=== PATIENT | male | born 1990 ===

== ENCOUNTER 2019-07-03 | Emergency (ER) | payer OTHER ==
[2019-07-03] MEDS ORDERED: TETANUS & DIPHTHERIA TOX,ADULT 0.5 ML VIAL ONE (00:33)
[2019-07-03] MEDS ORDERED: DERMABOND SKIN ADHESIVE TOP ONE (00:33)
[2019-07-03] MEDS ORDERED: LIDOCAINE 1% 20 ML MDV ONE (00:33)
--- NOTE | 2019-07-03 01:08 | ER ---
Nurse's Notes [facility] Name: Bruce Mccloud Jr Age: 29 yrs Sex: Male : 1990 Arrival Date: 07/03/2019 Time: 00:06 Bed 19 Private MD: Diagnosis: Fall due to bumping against object;Laceration without foreign body of other part of head-right brow, upper lip;Laceration of lip and oral cavity without foreign body Presentation: 07/03 00:07 Presenting complaint: Patient states: HE was standing in his cell when he lost consciousness and fell hitting his head. Pt suffered small laceration cut on upper lip and eyebrow. Care prior to arrival: None. Mechanism of Injury: Fall standing. 00:07 Acuity: YUNIOR 4 00:07 Method Of Arrival: Ambulatory 00:18 Transition of care: patient was not received from another setting of care. Onset of symptoms was July 03, 2019. Risk Assessment: Do you want to hurt yourself or someone else? Patient reports no desire to harm self or others. Initial Sepsis Screen: Does the patient meet any 2 criteria? No. Patient's initial sepsis screen is negative. Does the patient have a suspected source of infection? No. Patient's initial sepsis screen is negative. 00:21 Trauma event details: Injury occurred in the [facility], Injury occurred: in an institution. Injury occurred: July 03, 2019. Trauma Activation: Physician: ED Physician; Name: ; Notified At: 00:22; Arrived At: 00:22 Physician: General Surgeon; Name: ; Notified At: 00:22; Arrived At: Physician: Radiology; Name: ; Notified At: 00:22; Arrived At: 00:22 Physician: Respiratory; Name: ; Notified At: 00:22; Arrived At: Physician: Lab; Name: ; Notified At: 00:22; Arrived At: Historical: - Allergies: 00:20 Ibuprofen; - Home Meds: 00:20 carbamazepine 200 mg Oral tab [Active]; citalopram 40 mg tab [Active]; - PSHx: 00:20 None; wh - Immunization history: Last tetanus immunization: unknown. - Coronavirus screen:: The patient has NOT traveled to [place] in the past 14 days. - Social history:: Smoking status: Patient/guardian denies using. - Family history:: not pertinent. - Ebola Screening: : Patient negative for fever greater than or equal to 101.5 degrees Fahrenheit, and additional compatible Ebola Virus Disease symptoms Patient denies exposure to infectious person. Screenin:11 Abuse screen: Denies threats or abuse. Denies injuries from another. Nutritional wh screening: No deficits noted. Tuberculosis screening: No symptoms or risk factors identified. Fall Risk Fall in past 12 months (25 points). Primary Survey: 00:30 NO uncontrolled hemorrhage observed. A: The patient is alert. Airway: patent, No aa1 supplemental oxygen in use on arrival. Oral cavity: clear. Breathing/Chest: Respiratory pattern: regular, Respiratory effort: spontaneous, unlabored, Breath sounds: clear, bilaterally. Chest inspection: symmetrical rise and fall of the chest. Circulation: Heart tones present. Pulses: palpable right radial artery and left radial artery. Skin color: pink, Skin temperature: warm. Disability Alert. Exposure/Environment: There is no evidence of uncontrolled external bleeding. Obvious injury(ies) are noted at this time: laceration noted to right side of upper lip and right brow. 00:39 Reassessment Breathing/Chest Respiratory pattern Regular Respiratory effort Spontaneous wh Unlabored Breath sounds Clear. Secondary Survey: 00:30 HEENT: Face Other laceration to R side of upper lip and R brow. Gastrointestinal: aa1 Abdomen is soft. : No signs and/or symptoms were reported regarding the genitourinary system. Musculoskeletal: Circulation, motion, and sensation intact. Capillary refill < 3 seconds. Injury Description: Laceration sustained to outer aspect of right eyebrow and upper vermilion border is clean, 0.5 to 2.5 cm long, not bleeding. Assessment: 00:38 General: Appears in no apparent distress. Behavior is calm, cooperative, appropriate wh for age. Pain: Complains of pain in outer aspect of right eyebrow and upper lip. Neuro: Level of Consciousness is awake, alert, obeys commands, Oriented to person, place, time, situation, Appropriate for age. Cardiovascular: Heart tones S1 S2 Capillary refill < 3 seconds. Respiratory: Airway is patent Respiratory effort is even, unlabored, Respiratory pattern is regular, symmetrical, Breath sounds are clear bilaterally. GI: Abdomen is flat, non-distended. : No signs and/or symptoms were reported regarding the genitourinary system. EENT: No signs and/or symptoms were reported regarding the EENT system. Derm: Skin is intact, is healthy with good turgor, Skin is pink, warm \T\ dry. normal. Musculoskeletal: Circulation, motion, and sensation intact. 01:30 Reassessment: Patient appears in no apparent distress at this time. No changes from previously documented assessment. Patient and/or family updated on plan of care and expected duration. Pain level reassessed. Patient is alert, oriented x 3, equal unlabored respirations, skin warm/dry/pink. Pt with DC order awaiting CT imaging. 02:33 Reassessment: Patient appears in no apparent distress at this time. No changes from previously documented assessment. Patient and/or family updated on plan of care and expected duration. Pain level reassessed. Patient is alert, oriented x 3, equal unlabored respirations, skin warm/dry/pink. CT imaging result negative, PER MD ok to DC. Vital Signs: 00:12 BP 123 / 80; Pulse 74; Resp 18; Temp 98; Pulse Ox 99% ; Weight 63.5 kg; Height 5 ft. 2 in. (157.48 cm); 01:00 BP 108 / 69; Pulse 69; Resp 18; Pulse Ox 99% on R/A; 02:00 BP 101 / 64; Pulse 66; Resp 18; Pulse Ox 99% on R/A; 00:12 Body Mass Index 25.61 (63.50 kg, 157.48 cm) [place] Coma Score: 00:12 Eye Response: spontaneous(4). Verbal Response: oriented(5). Motor Response: obeys commands(6). Total: 15. Trauma Score (Adult): 00:12 Eye Response: spontaneous(1); Verbal Response: oriented(1); Motor Response: obeys commands(2); Systolic BP: > 89 mm Hg(4); Respiratory Rate: 10 to 29 per min(4); [place] Score: 15; Trauma Score: 12 ED Course: 00:06 Patient arrived in ED. 00:09 Triage completed. 00:19 Joaquín Turner MD is Attending Physician. [facility] 00:20 Arm band placed on right wrist. 00:21 Patient has correct armband on for positive identification. Bed in low position. Call light in reach. Side rails up X 1. Pulse ox on. NIBP on. 00:21 Patient maintains SpO2 saturation greater than 95% on room air. 00:22 Beth Stearns is Primary Nurse. 00:22 Thermoregulation: warm blanket given to patient. 00:52 Assist provider with laceration repair on outer aspect of right eyebrow and upper lip wh that was 2.5 cm. or less using sutures. Set up tray. Performed by Joaquín Turner MD Dressed with band aid, Patient tolerated well. 02:35 Patient did not have IV access during this emergency room visit. 07:33 CT Head C Spine In Process Unspecified. EDMS Administered Medications: 00:33 Drug: Tetanus-Diphtheria Toxoid Adult 0.5 ml {Pail Bailer: [employer]. Exp: 04/08/2021. Lot #: [id number]. } Route: IM; Site: right deltoid; 00:51 Follow up: Response: No adverse reaction 00:51 Drug: Lidocaine-Epinephrine -1%: (1:100,000) 10 ml {Note: Administered by Johnny REINA.} Volume: 20 ml; Route: Infiltration; 01:41 Drug: Ancef 1 grams Route: IM; Site: right gluteus; 02:32 Follow up: Response: No adverse reaction 01:41 Drug: Neosporin Ointment 1 application Route: Topical; Site: affected area; 02:32 Follow up: Response: No adverse reaction Intake: 02:35 PO: 120ml (Juice); Total: 120ml. Outcome: 01:06 Discharge ordered by . [facility] 02:34 Discharged to Law Enforcement 02:34 Condition: stable 02:34 Discharge instructions given to patient, police, Instructed on discharge instructions, follow up and referral plans. medication usage, wound care, Demonstrated understanding of instructions, follow-up care, medications, wound care, Prescriptions given X 1. 02:35 Patient's length of stay was not longer than 2 hours. 02:35 Patient left the ED. Signatures: Dispatcher [employer] EDMS Noelle Hernandez RN RN aa1 Joaquín Turner MD MD cha [place], Winsy Corrections: (The following items were deleted from the chart) 00: 00:12 NO uncontrolled hemorrhage observed [facility] 00:12 A: The patient is alert. Airway: patent, [facility] 00:12 Breathing/Chest: Respiratory pattern: regular, [facility] 00:12 Circulation: Cardiac rhythm: sinus rhythm [facility] 00:12 Disability Alert [facility] 00:12 Exposure/Environment: No obvious injuries are noted at this time. [facility]
--- NOTE | 2019-07-03 01:09 | EDPHYS ---
Physician Documentation [facility] Name: Bruce Mccloud Jr Age: 29 yrs Sex: Male : 1990 Arrival Date: 07/03/2019 Time: 00:06 Bed 19 Private MD: ED Physician Joaquín Turner HPI: 07/03 01:00 This 29 yrs old Male presents to ER via Ambulatory with complaints of Fall emeterio Injury. 01:00 Details of fall: The patient fell from an upright position, while standing, while emeterio walking. Onset: The symptoms/episode began/occurred just prior to arrival. Associated injuries: The patient sustained injury to the head, laceration, pain, swelling. Severity of symptoms: At their worst the symptoms were mild, in the emergency department the symptoms are unchanged. The patient has experienced similar episodes in the past, a few times. Historical: - Allergies: 00:20 Ibuprofen; wh - Home Meds: 00:20 carbamazepine 200 mg Oral tab [Active]; citalopram 40 mg tab [Active]; wh - PSHx: 00:20 None; wh - Immunization history: Last tetanus immunization: unknown. - Coronavirus screen:: The patient has NOT traveled to [place] in the past 14 days. - Social history:: Smoking status: Patient/guardian denies using. - Family history:: not pertinent. - Ebola Screening: : Patient negative for fever greater than or equal to 101.5 degrees Fahrenheit, and additional compatible Ebola Virus Disease symptoms Patient denies exposure to infectious person. ROS: 01:00 Constitutional: Negative for fever, chills, and weight loss, Eyes: Negative for injury, emeterio pain, redness, and discharge, ENT: Negative for injury, pain, and discharge, Neck: Negative for injury, pain, and swelling, Cardiovascular: Negative for chest pain, palpitations, and edema, Respiratory: Negative for shortness of breath, cough, wheezing, and pleuritic chest pain, Abdomen/GI: Negative for abdominal pain, nausea, vomiting, diarrhea, and constipation, Back: Negative for injury and pain, : Negative for injury, bleeding, discharge, and swelling, MS/Extremity: Negative for injury and deformity, Neuro: Negative for headache, weakness, numbness, tingling, and seizure, Psych: Negative for depression, anxiety, suicide ideation, homicidal ideation, and hallucinations, Allergy/Immunology: Negative for hives, rash, and allergies, Endocrine: Negative for neck swelling, polydipsia, polyuria, polyphagia, and marked weight changes. 01:00 Skin: Positive for erythema, hematoma, laceration(s), of the right eye and mouth. Exam: 01:00 Constitutional: This is a well developed, well nourished patient who is awake, alert, emeterio and in no acute distress. Eyes: Pupils equal round and reactive to light, extra-ocular motions intact. Lids and lashes normal. Conjunctiva and sclera are non-icteric and not injected. Cornea within normal limits. Periorbital areas with no swelling, redness, or edema. Neck: Trachea midline, no thyromegaly or masses palpated, and no cervical lymphadenopathy. Supple, full range of motion without nuchal rigidity, or vertebral point tenderness. No Meningismus. Chest/axilla: Normal chest wall appearance and motion. Nontender with no deformity. No lesions are appreciated. Cardiovascular: Regular rate and rhythm with a normal S1 and S2. No gallops, murmurs, or rubs. Normal PMI, no JVD. No pulse deficits. Respiratory: Lungs have equal breath sounds bilaterally, clear to auscultation and percussion. No rales, rhonchi or wheezes noted. No increased work of breathing, no retractions or nasal flaring. Abdomen/GI: Soft, non-tender, with normal bowel sounds. No distension or tympany. No guarding or rebound. No evidence of tenderness throughout. Back: No spinal tenderness. No costovertebral tenderness. Full range of motion. Male : Normal genitalia with no discharge or lesions. Skin: Warm, dry with normal turgor. Normal color with no rashes, no lesions, and no evidence of cellulitis. MS/ Extremity: Pulses equal, no cyanosis. Neurovascular intact. Full, normal range of motion. Neuro: Awake and alert, GCS 15, oriented to person, place, time, and situation. Cranial nerves II-XII grossly intact. Motor strength 5/5 in all extremities. Sensory grossly intact. Cerebellar exam normal. Normal gait. Psych: Awake, alert, with orientation to person, place and time. Behavior, mood, and affect are within normal limits. 01:00 Head/face: Noted is a laceration(s), that is deep, that is linear, 1 cm(s), of the right eye, of the mouth. Vital Signs: 00:12 BP 123 / 80; Pulse 74; Resp 18; Temp 98; Pulse Ox 99% ; Weight 63.5 kg; Height 5 ft. 2 wh in. (157.48 cm); 01:00 BP 108 / 69; Pulse 69; Resp 18; Pulse Ox 99% on R/A; wh 02:00 BP 101 / 64; Pulse 66; Resp 18; Pulse Ox 99% on R/A; wh 00:12 Body Mass Index 25.61 (63.50 kg, 157.48 cm) [place] Coma Score: 00:12 Eye Response: spontaneous(4). Verbal Response: oriented(5). Motor Response: obeys commands(6). Total: 15. Trauma Score (Adult): 00:12 Eye Response: spontaneous(1); Verbal Response: oriented(1); Motor Response: obeys commands(2); Systolic BP: > 89 mm Hg(4); Respiratory Rate: 10 to 29 per min(4); [place] Score: 15; Trauma Score: 12 Laceration: 01:00 Wound Repair of 1cm ( 0.4in ) subcutaneous laceration to philtrum. Linear shaped.. emeterio Distal neuro/vascular/tendon intact. Anesthesia: Local anesthetic administered with 5 mls of 1% lidocaine. Wound prep: Simple cleansing with betadine. Skin closed with 2 5-0 Prolene using interrupted sutures and sterile technique. Dressed with Neosporin. Patient tolerated well. MDM: 00:19 Patient medically screened. [facility] 07/03 00:21 Order name: CT Head C Spine [facility] 07/03 00:21 Order name: Prolene, Sutures; Complete Time: 00:32 [facility] 07/03 00:21 Order name: Dressing - Wound; Complete Time: 00:32 [facility] 07/03 00:21 Order name: Gloves, Sterile; Complete Time: 00: [facility] 07/03 00:21 Order name: Setup Suture Tray; Complete Time: 00:32 [facility] Administered Medications: 00:33 Drug: Tetanus-Diphtheria Toxoid Adult 0.5 ml {Lacquer Coater: [employer]. Exp: 04/08/2021. Lot #: [id number]. } Route: IM; Site: right deltoid; 00:51 Follow up: Response: No adverse reaction 00:51 Drug: Lidocaine-Epinephrine -1%: (1:100,000) 10 ml {Note: Administered by Johnny REINA.} Volume: 20 ml; Route: Infiltration; 01:41 Drug: Ancef 1 grams Route: IM; Site: right gluteus; 02:32 Follow up: Response: No adverse reaction 01:41 Drug: Neosporin Ointment 1 application Route: Topical; Site: affected area; 02:32 Follow up: Response: No adverse reaction Disposition: 07/03/19 01:06 Discharged to Home. Impression: Fall due to bumping against object, Laceration without foreign body of other part of head - right brow, upper lip, Laceration of lip and oral cavity without foreign body. - Condition is Stable. - Discharge Instructions: Head Injury, Adult, Mouth Laceration, Facial Laceration, Mouth Laceration, [id number], Facial Laceration, [id number], Head Injury, Adult, [id number]. - Prescriptions for Keflex 500 mg Oral Capsule - take 1 capsule by ORAL route every 6 hours for 10 days; 28 capsule. - Medication Reconciliation Form, Thank You Letter, Antibiotic Education, Prescription Opioid Use form. - Follow up: Private Physician; When: 5 - 6 days; Reason: Recheck today's complaints, Continuance of care, Re-evaluation by your physician. - Problem is new. - Symptoms have improved. Signatures: Dispatcher [employer] EDJoaquín Ivy MD MD cha [place], Winsy Corrections: (The following items were deleted from the chart) 01:10 01:06 07/03/2019 01:06 Discharged to Home. Impression: Fall due to bumping against [facility] object; Laceration without foreign body of other part of head - right brow, upper lip. Condition is Stable. Forms are Medication Reconciliation Form, Thank You Letter, Antibiotic Education, Prescription Opioid Use. Follow up: Private Physician; When: 5 - 6 days; Reason: Recheck today's complaints, Continuance of care, Re-evaluation by your physician. Problem is new. Symptoms have improved. emeterio 02:35 01:10 07/03/2019 01:06 Discharged to Home. Impression: Fall due to bumping against object; Laceration without foreign body of other part of head - right brow, upper lip; Laceration of lip and oral cavity without foreign body. Condition is Stable. Discharge Instructions: Head Injury, Adult, Facial Laceration, Facial Laceration, [id number], Head Injury, Adult, [id number]. Prescriptions for Keflex 500 mg Oral Capsule - take 1 capsule by ORAL route every 6 hours for 10 days; 28 capsule. and Forms are Medication Reconciliation Form, Thank You Letter, Antibiotic Education, Prescription Opioid Use. Follow up: Private Physician; When: 5 - 6 days; Reason: Recheck today's complaints, Continuance of care, Re-evaluation by your physician. Problem is new. Symptoms have improved. emeterio
[2019-07-03] MEDS ORDERED: WATER FOR INJ,STERILE 10 ML ONE (01:20)
[2019-07-03] MEDS ORDERED: CEFAZOLIN SODIUM 1 GM/VIAL ONE (01:20)
[2019-07-03] MEDS ORDERED: BACI/NEOMYCIN/POLY OINT 15GM TOP ONE (01:20)
[2019-07-03 02:48] VITALS: TEMP 98; O2SAT 99
[2019-07-03 02:50] VITALS: BP 101/64
--- NOTE | 2019-07-04 11:26 | RAD REPORT ---
EXAM DESCRIPTION: CT - Head C Spine Mpr Wo Con - 07/03/2019 4:29 am CLINICAL HISTORY: 29 years Male Pain; Swelling TECHNIQUE: Contiguous axial CT images obtained through the brain and cervical spine without IV contr ast. Coronal and sagittal reformatted images also provided. This CT exam was performed according to our departmental dose-optimization program, which includes on e or more of the following dose reduction techniques: automated exposure control, adjustment of the m A and/or kV according to patient size, and/or use of iterative reconstruction technique. COMPARISON: No prior exams provided for comparison. FINDINGS: There is soft tissue swelling superior and lateral to the right orbit. There are chronic f ractures of bilateral nasal bones, right orbital floor, and right zygomatic arch. Small ossific subcu taneous foci near these fractures are likely related to chronic trauma. No soft tissue gas. There is no acute skull fracture, intracranial hemorrhage, extraaxial collection, or acute transcorti karine infarction. The ventricles are normal in size and contour without mass effect or midline shift. The paranasal sinuses and mastoid air cells are clear. No acute intraorbital abnormality. There is no acute cervical fracture or spondylolisthesis. Vertebral body and disc space heights are preserved without aggressive osseous lesion. There is no de finite central canal or neural foraminal stenosis at any cervical level. No prevertebral or paraspinal soft tissue swelling. The lung apices are clear. IMPRESSION: Soft tissue swelling superior and lateral to the right orbit with chronic right facial f ractures. No acute facial fracture or orbital injury. No acute intracranial abnormality. No acute cervical spine injury. Electronically signed by: Merly Javier MD 07/03/2019 1:57 AM DICTAPHONE TYPIST Due to temporary technical issues with the PACS/Fluency reporting system, reports are being signed by the in house radiologist as a courtesy to ensure prompt reporting. The interpreting radiologist is f ully responsible for the content of the report.
[2019-07-12] MEDS ORDERED: BACI/NEOMYCIN/POLY OINT 15GM TOP ONE (05:40)
[2019-07-12] MEDS ORDERED: HYDROCODONE/APAP 10/325 TAB ONE (05:47)
== END 2019-07-03 02:35 | disposition home or self-care (01) ==
LOC: ER
PROC: 0JQ10ZZ Repair Face Subcutaneous Tissue and Fascia, Open Approach (ICD-10-PCS; principal; 2019-07-03)
DX: S01.511A Laceration without foreign body of lip, initial encounter (principal); S01.512A Laceration without foreign body of oral cavity, initial encounter; W18.09XA Striking against other object with subsequent fall, initial encounter; Y93.01 Activity, walking, marching and hiking; Y92.9 Unspecified place or not applicable; Z23 Encounter for immunization; Z88.6 Allergy status to analgesic agent
CPT/HCPCS: 70450; 72125; 90471; 90714; 96372; 99284; J0690